=== PATIENT | male | born 1980 | race Caucasian/White ===

== ENCOUNTER 2017-03-02 03:15 | Inpatient (IN) | payer MEDICAID, OTHER ==
[~2017-03-02] VITALS: Ht 167.6 cm; Wt 67.1 kg
[2017-03-02 04:19] LABS: BASOPHILS % (AUTO) 0.6 % (0.0-2.0); EOSINOPHILS % (AUTO) 2.5 % (1.0-6.0); HEMATOCRIT 41.1 % (41-53); LYMPHOCYTES # (AUTO) 2.9 K/uL (1.0-4.8); LYMPHOCYTES % (AUTO) 44.2 % (22.0-44.0); MEAN CORPUSCULAR HEMOGLOBIN 29.7 pg (26.0-34.0); MEAN CORPUSCULAR HGB CONC 34.2 G/dL (31.0-37.0); MEAN CORPUSCULAR VOLUME 87 fL (80-100); MONOCYTES # (AUTO) 0.5 K/uL (0.1-1.0); MONOCYTES % (AUTO) 7.3 % (2.0-9.0); NEUTROPHILS % (AUTO) 45.4 % (40.0-70.0); PLATELET COUNT (AUTO) 296 K/uL (150-450); RED BLOOD CELL COUNT(AUTO) 4.73 MIL/uL (4.50-5.90); RED CELL DISTRIBUTION WIDTH 13.8 % (11.5-14.5)
[2017-03-02 04:21] LABS: ANION GAP 3 mmol/L (8-16); CALCIUM, TOTAL 8.8 mg/dL (8.8-10.5); CARBON DIOXIDE 32 mmol/L (22-29); CHLORIDE 103 mmol/L (98-107); CREATININE 0.68 mg/dL (0.60-1.30); GLOMERULAR FILTR. RATE CALC > 60 mL/min (>60); GLUCOSE,RANDOM 89 mg/dL (70-110); POTASSIUM 3.7 mmol/L (3.5-5.1); SODIUM SERUM 138 mmol/L (136-145); UREA NITROGEN, BLOOD 15 mg/dL (7-18)
[2017-03-02 04:25] LABS: ALANINE AMINOTRANSFERASE 47 U/L (12-78); ALBUMIN 3.1 g/dL (3.4-5.0); ALKALINE PHOSPHATASE 171 U/L (46-116); ASPARTATE AMINOTRANSFERASE 32 U/L (15-37); BILIRUBIN,TOTAL 0.3 mg/dL (0.1-1.0); TOTAL PROTEIN, SERUM 7.3 g/dL (6.4-8.2)
[2017-03-02 04:25] LABS: AMPHET/METH SCREEN,URINE POSITIVE (NEGATIVE); BARBITURATE SCREEN, URINE NEGATIVE (NEGATIVE); BENZODIAZEPINES SCREEN,URINE POSITIVE (NEGATIVE); CANNABINOID SCREEN,URINE NEGATIVE (NEGATIVE); COCAINE SCREEN,URINE NEGATIVE (NEGATIVE); METHADONE SCREEN, URINE NEGATIVE (NEGATIVE); OPIATE SCREEN,URINE POSITIVE (NEGATIVE)
[2017-03-02 04:26] LABS: PHENCYCLIDINE SCREEN,URINE NEGATIVE (NEGATIVE)
[2017-03-02] MEDS ORDERED: NALOXONE HCL 1 MG/ML 2 ML SYG IM ONE (04:30)
[2017-03-02] MEDS ORDERED: HALOPERIDOL 5 MG TABLET PO PRN (10:15)
[2017-03-02] MEDS ORDERED: ZOLPIDEM TARTRATE 10 MG TABLET PO PRN (10:15)
[2017-03-02] MEDS ORDERED: LORazepam 2 MG TABLET PO PRN (10:15)
[2017-03-02] MEDS ORDERED: PERTUSS(ACELL),DIPH,TET VAC/PF 0.5 ML VIAL IM ONE (10:30)
[2017-03-02] MEDS ORDERED: SODIUM CHLORIDE 0.9% 250 ML IRRIG SOLUTION BOTTLE IRRIG ONE (10:30)
[2017-03-02] MEDS ORDERED: INFLUENZA VIRUS VACCINE QVS 2017-18 (3YR+)/PF 60 MCG/0.5 ML SYRINGE IM ONE (14:15)
[2017-03-02 14:48] VITALS: BP 99/61
[2017-03-02 16:10] VITALS: BP 110/66
[2017-03-03 06:04] VITALS: BP 109/68
[2017-03-03] MEDS ORDERED: MAGNESIUM HYDROXIDE SUSPENSION 30 ML UDCUP PO PRN (07:00)
[2017-03-03] MEDS ORDERED: MAG HYDROX/AL HYDROX/SIMETH ES 30 ML SUSPENSION UDCUP PO PRN (07:00)
[2017-03-03] MEDS ORDERED: PETROLATUM,WHITE 71 GM JELLY TP PRN (07:00)
[2017-03-03] MEDS ORDERED: LOPERAMIDE HCL 2 MG CAPSULE PO PRN (07:00)
[2017-03-03] MEDS ORDERED: CloNIDine HCL 0.1 MG TABLET PO PRN (07:00)
[2017-03-03] MEDS ORDERED: ALBUTEROL SULFATE HFA 90 MCG/PUFF 8 GM INHALER IH PRN (07:00)
[2017-03-03] MEDS ORDERED: ONDANSETRON HCL 4 MG TABLET PO PRN (07:00)
[2017-03-03] MEDS ORDERED: BENZOCAINE/MENTHOL LOZENGE MM PRN (07:00)
[2017-03-03 08:20] VITALS: BP 113/72
[2017-03-03] MEDS: BACITRACIN 28.4 GM OINTMENT TP SCH ×2 (09:18→16:36)
[2017-03-03] MEDS: FLUoxetine HCL 20 MG CAPSULE PO SCH (11:30)
[2017-03-03 16:37] VITALS: BP 133/70
[2017-03-04 06:04] VITALS: BP 121/65
[2017-03-04 08:19] VITALS: BP 122/66
[2017-03-04] MEDS: BACITRACIN 28.4 GM OINTMENT TP SCH ×2 (08:46→17:07)
[2017-03-04] MEDS: FLUoxetine HCL 20 MG CAPSULE PO SCH (08:46)
[2017-03-04 16:16] VITALS: BP 138/73
[2017-03-05 05:30] VITALS: BP 139/96
[2017-03-05 08:33] VITALS: BP 128/78
[2017-03-05 08:38] LABS: CHOL/HDL RATIO 3.6 (4.2-7.3)
[2017-03-05] MEDS: FLUoxetine HCL 20 MG CAPSULE PO SCH (08:53)
[2017-03-05] MEDS: BACITRACIN 28.4 GM OINTMENT TP SCH (08:53)
[2017-03-05] MEDS ORDERED: FLUO-191 PO (11:13)
== END 2017-03-05 11:50 | disposition home or self-care (01) | DRG 751 ==
LOC: EMS 03:16 → B2S 10:20
PROVIDERS: ADMIT Psychiatry & Neurology Child & Adolescent Psychiatry; ATTEND Psychiatry & Neurology Child & Adolescent Psychiatry
PROC: 3E0234Z Introduction of Serum, Toxoid and Vaccine into Muscle, Percutaneous Approach (ICD-10-PCS; principal; 2017-03-02)
DX: F33.2 Major depressive disorder, recurrent severe without psychotic features (principal); F23 Brief psychotic disorder; R45.851 Suicidal ideations; F17.200 Nicotine dependence, unspecified, uncomplicated; F15.10 Other stimulant abuse, uncomplicated; F41.9 Anxiety disorder, unspecified; F12.90 Cannabis use, unspecified, uncomplicated; S61.512A Laceration without foreign body of left wrist, initial encounter; X78.9XXA Intentional self-harm by unspecified sharp object, initial encounter; F10.10 Alcohol abuse, uncomplicated; F11.10 Opioid abuse, uncomplicated; K59.00 Constipation, unspecified; Z79.899 Other long term (current) drug therapy; Z82.49 Family history of ischemic heart disease and other diseases of the circulatory system; Y93.89 Activity, other specified; Y92.89 Other specified places as the place of occurrence of the external cause; Z88.8 Allergy status to other drugs, medicaments and biological substances; Z23 Encounter for immunization
CPT/HCPCS: 90471; 90715; 96372; 99285; 99406; G0480; J2310

== ENCOUNTER 2018-12-07 17:00 | Inpatient (IN) | payer MEDICAID, OTHER ==
[~2018-12-07] VITALS: Ht 167.6 cm; Wt 87.6 kg
[~2018-12-07 17:00] MED LIST: FLUO-191 PO
[2018-12-07 18:27] LABS: BASOPHILS % (AUTO) 0.4 % (0.0-2.0); EOSINOPHILS % (AUTO) 0.6 % (1.0-6.0); HEMATOCRIT 47.7 % (41-53); HEMOGLOBIN 16.3 g/dL (13.5-17.5); LYMPHOCYTES # (AUTO) 1.1 K/uL (1.0-4.8); LYMPHOCYTES % (AUTO) 14.8 % (22.0-44.0); MEAN CORPUSCULAR HEMOGLOBIN 30.3 pg (26.0-34.0); MEAN CORPUSCULAR HGB CONC 34.1 G/dL (31.0-37.0); MEAN CORPUSCULAR VOLUME 89 fL (80-100); MONOCYTES # (AUTO) 0.6 K/uL (0.1-1.0); MONOCYTES % (AUTO) 7.8 % (2.0-9.0); NEUTROPHILS # (AUTO) 5.9 K/uL (1.8-7.7); NEUTROPHILS % (AUTO) 76.4 % (40.0-70.0); PLATELET COUNT (AUTO) 279 K/uL (150-450); RED BLOOD CELL COUNT(AUTO) 5.36 MIL/uL (4.50-5.90); RED CELL DISTRIBUTION WIDTH 13.1 % (11.5-14.5)
[2018-12-07 18:36] LABS: ANION GAP 6 mmol/L (8-16); CALCIUM, TOTAL 8.9 mg/dL (8.8-10.5); CARBON DIOXIDE 29 mmol/L (22-29); CHLORIDE 102 mmol/L (98-107); CREATININE 0.85 mg/dL (0.60-1.30); GLOMERULAR FILTR. RATE CALC > 60 mL/min (>60); GLUCOSE,RANDOM 98 mg/dL (70-110); POTASSIUM 4.5 mmol/L (3.5-5.1); SODIUM SERUM 137 mmol/L (136-145); UREA NITROGEN, BLOOD 9 mg/dL (7-18)
[2018-12-07 18:42] LABS: ALANINE AMINOTRANSFERASE 88 U/L (12-78); ALKALINE PHOSPHATASE 220 U/L (46-116); ASPARTATE AMINOTRANSFERASE 62 U/L (15-37); BILIRUBIN,TOTAL 0.9 mg/dL (0.1-1.0); TOTAL PROTEIN, SERUM 7.8 g/dL (6.4-8.2)
[2018-12-07] MEDS ORDERED: GABA-531 PO (19:16)
[2018-12-07] MEDS ORDERED: ZIPR20CA2 PO (19:16)
[2018-12-07] MEDS ORDERED: BUPR-93 PO (19:16)
[2018-12-07 23:11] LABS: AMPHET/METH SCREEN,URINE NEGATIVE (NEGATIVE); BARBITURATE SCREEN, URINE NEGATIVE (NEGATIVE); BENZODIAZEPINES SCREEN,URINE NEGATIVE (NEGATIVE); CANNABINOID SCREEN,URINE NEGATIVE (NEGATIVE); COCAINE SCREEN,URINE NEGATIVE (NEGATIVE); METHADONE SCREEN, URINE NEGATIVE (NEGATIVE); OPIATE SCREEN,URINE POSITIVE (NEGATIVE); PHENCYCLIDINE SCREEN,URINE NEGATIVE (NEGATIVE)
[2018-12-08] MEDS ORDERED: ZOLPIDEM TARTRATE 10 MG TABLET PO PRN
[2018-12-08] MEDS ORDERED: HALOPERIDOL 5 MG TABLET PO PRN
[2018-12-08] MEDS ORDERED: LORazepam 2 MG TABLET PO PRN
[2018-12-08 02:13] VITALS: BP 117/75
[2018-12-08] MEDS ORDERED: INFLUENZA VIRUS VACCINE QVS 2019-20 (3YR+)/PF 60 MCG/0.5 ML SYRINGE IM ONE (03:45)
[2018-12-08 08:09] VITALS: BP 118/66
[2018-12-08 08:25] LABS: CHOL/HDL RATIO 3.3 (4.2-7.3)
[2018-12-08] MEDS: BuPROPion HCL XL 150 MG ER TABLET PO SCH (10:50)
[2018-12-08] MEDS: GABAPENTIN 300 MG CAPSULE PO SCH ×2 (12:30→16:25)
[2018-12-08 16:06] VITALS: BP 103/64
[2018-12-08] MEDS: ZIPRASIDONE HCL 20 MG CAPSULE PO SCH (16:25)
[2018-12-09 01:08] VITALS: BP 103/65
[2018-12-09] MEDS: ZIPRASIDONE HCL 20 MG CAPSULE PO SCH ×2 (06:43→16:02)
[2018-12-09 08:09] VITALS: BP 124/70
[2018-12-09] MEDS: GABAPENTIN 300 MG CAPSULE PO SCH ×3 (08:21→16:02)
[2018-12-09] MEDS: BuPROPion HCL XL 150 MG ER TABLET PO SCH ×3 (08:21→10:57)
[2018-12-09 16:12] VITALS: BP 105/69
[2018-12-10 05:54] VITALS: BP 120/74
[2018-12-10] MEDS: ZIPRASIDONE HCL 20 MG CAPSULE PO SCH (06:16)
[2018-12-10] MEDS: GABAPENTIN 300 MG CAPSULE PO SCH ×2 (08:11→12:14)
[2018-12-10] MEDS: BuPROPion HCL XL 150 MG ER TABLET PO SCH (08:12)
[2018-12-10 08:50] VITALS: BP 136/89
== END 2018-12-10 12:30 | disposition home or self-care (01) | DRG 750 ==
LOC: EMS 17:01 → B2S 12-08 00:12
PROVIDERS: ADMIT Psychiatry & Neurology Psychiatry; ATTEND Psychiatry & Neurology Psychiatry
DX: F25.1 Schizoaffective disorder, depressive type (principal); R45.851 Suicidal ideations; R74.0 Nonspecific elevation of levels of transaminase and lactic acid dehydrogenase [LDH]; K59.00 Constipation, unspecified; F17.210 Nicotine dependence, cigarettes, uncomplicated; Z91.5 Personal history of self-harm; F10.10 Alcohol abuse, uncomplicated; F19.10 Other psychoactive substance abuse, uncomplicated
CPT/HCPCS: 80074; G0480